=== PATIENT | female | born 2000 | race Two or more races ===

== ENCOUNTER 2022-08-13 07:22 | Outpatient (CLI) | payer OTHER | END 2022-08-13 07:33 | disposition home or self-care (01) | LOC: NUCLEAR 07:22 | DX: K31.84 Gastroparesis (principal) ==

== ENCOUNTER 2023-11-09 11:20 | Outpatient (CLI) | payer OTHER | END 2023-11-09 11:36 | disposition home or self-care (01) | LOC: MRI 11:20 | DX: R10.9 Unspecified abdominal pain (principal) | CPT/HCPCS: 72195; 74181 ==